=== PATIENT | male | born 1960 | race African-American/Black ===

== ENCOUNTER 2017-08-31 11:20 | Emergency (ER) | payer MEDICAID, OTHER ==
[2017-08-31] MEDS ORDERED: Naproxen TAB* 250 MG PO ONE (11:41)
[2017-08-31] MEDS ORDERED: Colchicine* 0.6 MG TAB PO ONE ×2 (11:45→12:01)
--- NOTE | 2017-08-31 12:22 | RAD ---
Indication: LEFT knee pain and swelling intermittent following remote injury. Comparison: No relevant prior exams available on the [facility] for comparison. Technique: LEFT knee: AP, crosstable lateral views. Report: Moderate joint effusion. Normal articular alignment. No fracture evident. No significant arthropathic change evident. Soft tissue swelling along the course of the patellar tendon. IMPRESSION: #. Moderate joint effusion. #. Negative for fracture. #. Correlate clinically for potential patellar tendinopathy.
[2017-08-31 12:43] VITALS: BP 147/91
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
[2017-09-01] MEDS ORDERED: Colchicine* 0.6 MG TAB PO ONE (11:45)
== END 2017-08-31 12:42 | disposition home or self-care (01) ==
LOC: ED 11:20
DX: M25.462 Effusion, left knee (principal); M25.562 Pain in left knee; I48.91 Unspecified atrial fibrillation; I10 Essential (primary) hypertension; Z86.73 Personal history of transient ischemic attack (TIA), and cerebral infarction without residual deficits; Z79.01 Long term (current) use of anticoagulants; Z79.899 Other long term (current) drug therapy; Z87.891 Personal history of nicotine dependence
CPT/HCPCS: 99283; A9270-GY

== ENCOUNTER 2018-02-07 11:32 | Emergency (ER) | payer OTHER ==
--- NOTE | 2018-02-07 14:18 | ED ---
Upper Extremity Pain - HPI Summary HPI Summary: Patient is a 57-year-old male presents emergency department for ongoing left shoulder pain. Patient states he's been having shoulder pain for about 6 months that has been aggressively worse over the last several weeks. 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 Patient notes pain starts in his left lateral neck and radiates to his shoulder and is worse with movement and lifting. Past medical history of atrial fibrillation, hypertension, asthma. Pt. notes he has never been seen for shoulder pain before. Symptoms are mild in severity. Movement makes sxs worse. Rest makes sxs better. - History of Current Complaint Chief Complaint: EDShoulderClavicMarcelonj Stated Complaint: SHOULDER INJURY Time Seen by Provider: 02/07/18 12:41 Hx Obtained From: Patient - Allergies/Home Medications Allergies/Adverse Reactions: Allergies Allergy/AdvReac Type Severity Reaction Status Date / Time No Known Allergies Allergy Verified 02/07/18 11:45 PMH/Surg Hx/FS Hx/Imm Hx Previously Healthy: Yes Endocrine/Hematology History: Reports: Hx Anticoagulant Therapy Denies: Hx Blood Disorders, Hx Blood Transfusions, Hx Diabetes, Hx Thyroid Disease, Hx Anemia Cardiovascular History: Reports: Hx Atrial Fibrillation, Hx Hypertension Respiratory History: Reports: Hx Asthma History: Reports: Other Problems/Disorders - prostate issue Sensory History: Reports: Hx Contacts or Glasses Opthamlomology History: Reports: Hx Contacts or Glasses Neurological History: Reports: Hx Transient Ischemic Attacks (TIA) Infectious Disease History: No Infectious Disease History: Denies: Hx Clostridium Difficile, Hx Hepatitis, Hx Human Immunodeficiency Virus (HIV), Hx of Known/Suspected MRSA, Hx Shingles, Hx Tuberculosis, Traveled Outside the in Last 30 Days - Family History Known Family History: Positive: Hypertension - dad, Respiratory Disease - mom- asthma - Social History Occupation: Employed Full-time Lives: With Family Alcohol Use: None Substance Use Type: Reports: None Smoking Status (MU): Former Smoker Review of Systems Positive: Other - Left shoulder pain Negative: Weakness, Paresthesia, Numbness All Other Systems Reviewed And Are Negative: Yes Physical Exam Triage Information Reviewed: Yes Vital Signs On Initial Exam: Initial Vitals Temp Pulse Resp BP Pulse Ox 97.9 F 71 16 137/93 99 02/07/18 11:42 02/07/18 11:42 12/10/18 11:42 02/07/18 11:42 02/07/18 11:42 Vital Signs Reviewed: Yes Appearance: Positive: Well-Appearing - Pt. sitting on bed in NAD. Talkative. Skin: Positive: Warm, Dry Head/Face: Positive: Normal Head/Face Inspection Eyes: Positive: Normal, EOMI Neck: Positive: Supple, Other: - No midline tenderness Musculoskeletal: Positive: Other - 5/5 strength in left hand. Good radial pulse. Pain on palpatoin of left AC joint and top of humerous. Full ROM with pain. Neurological: Positive: Normal, CN Intact II-III Psychiatric: Positive: Affect/Mood Appropriate Diagnostics - Vital Signs Vital Signs Temp Pulse Resp BP Pulse Ox 02/07/18 11:42 97.9 F 71 16 137/93 99 - Laboratory Lab Statement: Any lab studies that have been ordered have been reviewed, and results considered in the medical decision making process. Course/Dx - Course Course Of Treatment: Patient presenting with ongoing shoulder pain that is worse with activity. Pain is reproducible. Shoulder x-ray shows mild has arthritis of AC joint and is otherwise unremarkable, reading per radiology. Suspect bursitis based on patient's exam. Advised patient to avoid anti- inflammatories given he is taking Xarelto. Recommend Tylenol as directed. Apply ice intermittently. Avoid heavy lifting. Advised patient to follow up with orthopedics for further evaluation and treatment. Patient understands and agrees with plan. - Diagnoses Differential Diagnosis/HQI/PQRI: Positive: Arthritis, Contusion, Strain, Sprain Provider Diagnoses: Shoulder bursitis, Osteoarthritis Discharge - Sign-Out/Discharge Documenting (check all that apply): Patient Departure - Discharge Plan Condition: Good Disposition: HOME Patient Education Materials: Shoulder Bursitis (ED), Shoulder Sprain (ED) Referrals: Donnell Vela MD [Medical Doctor] - Anthony Haq MD [Primary Care Provider] - Additional Instructions: Schedule a follow up appointment with orthopedics for further evaluation and treatment Ice intermittently Avoid heavy lifting Tylenol for pain as directed Return to ER if symptoms change or worsen - Billing Disposition and Condition Condition: GOOD Disposition: Home
[2018-02-07 14:56] VITALS: BP 141/96
== END 2018-02-07 14:49 | disposition home or self-care (01) ==
LOC: ED 11:32
DX: M71.9 Bursopathy, unspecified (principal); M19.90 Unspecified osteoarthritis, unspecified site; Z87.891 Personal history of nicotine dependence; Z79.01 Long term (current) use of anticoagulants; J45.909 Unspecified asthma, uncomplicated; Z86.73 Personal history of transient ischemic attack (TIA), and cerebral infarction without residual deficits; I48.91 Unspecified atrial fibrillation; I10 Essential (primary) hypertension
CPT/HCPCS: 99281